=== PATIENT | female | born 1995 | race African-American/Black ===

== ENCOUNTER → 2017-09-03 | Outpatient (CLI) | payer OTHER ==
--- NOTE | 2017-09-03 13:37 | Diagnostic Imaging Report ---
Three views of the right ankle. INDICATION: Fall. FINDINGS: No fracture, dislocation, or radiopaque foreign body. Ankle mortise is normal in configuration. IMPRESSION: Unremarkable exam. Dictated by: Dictated on workstation # [id number]
--- NOTE | 2017-09-03 13:43 | Diagnostic Imaging Report ---
Three views of the right foot. INDICATION: Fall. FINDINGS: No fracture, dislocation, or radiopaque foreign body. There is satisfactory joint alignment seen. There is mild soft tissue swelling along the lateral aspect of the forefoot. IMPRESSION: No fracture seen. Dictated by: Dictated on workstation # [id number]
== END ==
LOC: RAD 10:05
PROVIDERS: ATTEND Nurse Practitioner Family
DX: R22.41 Localized swelling, mass and lump, right lower limb (principal); M25.571 Pain in right ankle and joints of right foot
CPT/HCPCS: 73610; 73630